=== PATIENT | male | born 1960 | race Caucasian/White ===

== ENCOUNTER 2016-10-05 23:56 | Inpatient (IN) | payer OTHER ==
--- NOTE | 2016-10-06 00:28 | ED ---
Chest Pain HPI - General Chief Complaint: Chest Pain Stated Complaint: Chest Pain Time Seen by Provider: 10/06/16 00:15 Source: patient Mode of arrival: EMS - History of Present Illness Initial Comments: This patient is a 55-year-old man transferred from [facility]. He had gone there tonight after developing chest pain, that he states was probably just before 7 PM. The patient states that he was about to have his dinner at that time. He indicates that the pain lasted number of minutes, resolved, but recurred. It has now resolved. He did not note any worsening or relieving factors. He did not have any associated symptoms. MD Complaint: chest pain Onset/Timin -: hour(s) Onset: during rest Pain Location: substernal Pain Radiation: none Severity: moderate Quality: aching Consistency: intermittent, now resolved Improves With: nothing Worsens With: nothing - Related Data Home Medications Medication Instructions Recorded Confirmed Acetaminophen [Tylenol] 500 mg PO TID 10/06/16 10/06/16 Baclofen [Lioresal] 20 mg PO QID 10/06/16 10/06/16 Bisacodyl [Dulcolax] 10 mg RECTAL PRN 10/06/16 10/06/16 Celecoxib [CeleBREX] 200 mg PO DAILY 10/06/16 10/06/16 Dantrolene [Dantrium] 25 mg PO TID 10/06/16 10/06/16 Docusate Sodium [Dok] 100 mg PO 10/06/16 Famotidine [Pepcid] 20 mg PO BID 10/06/16 10/06/16 Gabapentin 600 mg PO TID 10/06/16 10/06/16 Ketoprofen 10/06/16 Polyethylene Glycol 3350 [Miralax] 17 gm PO TID 10/06/16 10/06/16 Sennosides [Senna] 8.6 mg PO DAILY 10/06/16 10/06/16 Zolpidem [Ambien] 5 mg PO HS 10/06/16 10/06/16 oxyCODONE HCL [Oxyir] 5 mg PO Q6H PRN 10/06/16 10/06/16 traMADol HCL [Ultram] 100 mg PO Q6HR PRN 10/06/16 10/06/16 Allergies Allergy/AdvReac Type Severity Reaction Status Date / Time No Known Allergies Allergy Verified 10/06/16 00:04 Review of Systems ROS Statement: Those systems with pertinent positive or pertinent negative responses have been documented in the HPI. ROS Other: All systems not noted in ROS Statement are negative. Constitutional: Denies: fever, chills Respiratory: Denies: cough, dyspnea, hemoptysis Cardiovascular: Reports: chest pain. Denies: palpitations, orthopnea, syncope Gastrointestinal: Denies: abdominal pain, nausea, vomiting Genitourinary: Reports: other (Indwelling catheter) Musculoskeletal: Denies: back pain Skin: Denies: rash Neurological: Denies: headache, weakness EKG Findings - EKG Results: EKG: interpreted by ERMD, sinus rhythm, normal axis, normal ST/T EKG shows: bradycardia (Rate 52 bpm) - Blocks, [place], Hypertrophy, ST Abn: Chamber hypertrophy or enlargement: left ventricular hypertrophy or enlargement (LVE) Past Medical History Past Medical History: No Reported History History of Any Multi-Drug Resistant Organisms: None Reported Past Surgical History: Back Surgery Past Psychological History: No Psychological Hx Reported Smoking Status: Never smoker Past Alcohol Use History: None Reported Past Drug Use History: None Reported General Exam General appearance: alert, in no apparent distress Head exam: Present: atraumatic, normocephalic ENT exam: Present: mucous membranes moist, other (Multiple caries) Neck exam: Present: normal inspection Respiratory exam: Present: normal lung sounds bilaterally. Absent: respiratory distress, wheezes, rales, rhonchi, stridor, chest wall tenderness Cardiovascular Exam: Present: regular rate, normal rhythm, normal heart sounds. Absent: systolic murmur, diastolic murmur, rubs, gallop GI/Abdominal exam: Present: soft. Absent: distended, tenderness, guarding, rebound, mass exam: Present: other (Indwelling Yu catheter) Back exam: Present: normal inspection. Absent: CVA tenderness (R), CVA tenderness (L) Neurological exam: Present: alert Skin exam: Present: warm, dry, intact, normal color. Absent: rash Course Vital Signs 10/05/16 10/06/16 10/06/16 23:57 01:32 02:44 Temperature 98.7 F Pulse Rate 57 L 59 L 49 L Respiratory 18 18 18 Rate Blood Pressure 161/91 161/74 149/91 O2 Sat by Pulse 98 97 97 Oximetry 10/06/16 10/06/16 10/06/16 03:55 05:10 07:03 Temperature Pulse Rate 49 L 48 L 55 L Respiratory 18 18 18 Rate Blood Pressure 146/77 153/74 134/74 O2 Sat by Pulse 98 98 98 Oximetry 10/06/16 07:49 Temperature Pulse Rate 45 L Respiratory 18 Rate Blood Pressure 155/71 O2 Sat by Pulse 94 L Oximetry Chest Pain MDM - MDM Patient is a 55-year-old man seen at outside hospital for suspected acute coronary syndrome and transferred here to have telemetry monitoring, serial cardiac enzymes, cardiology consultation. On arrival and at my evaluation, the patient has no symptoms any longer. He does have elevated troponin, and this is discussed with the admitting physician as well as the fountain jerk. Heparin started. Patient to be kept nothing by mouth and also to have echocardiogram this a.m. Critical Care Time Critical Care Time: Yes (35 minutes) Disposition Clinical Impression: NSTEMI (non-ST elevated myocardial infarction) Disposition: ADMITTED IP TO THIS HOSP Condition: Serious
[2016-10-06] MEDS ORDERED: ASPIRIN 81 MG CHEW PO STA (01:10)
[2016-10-06] MEDS ORDERED: NITROGLYCERIN SL TABS 0.4 MG TAB SUBLINGUAL PRN ×2 (01:21→14:37)
[2016-10-06] MEDS: HEPARIN SODIUM,PORCINE/D5W PMX 25,000 UNIT in DEXTROSE/WATER 1 500ML.BAG IV SCH ×2 (01:24→23:27)
[2016-10-06] MEDS: HEPARIN SODIUM,PORCINE 5,000 UNIT/ML 1 ML VIAL IV ONE ×2 (01:27→07:41)
[2016-10-06] MEDS: SODIUM CHLORIDE 0.9% 1,000 ML IV SCH ×3 (01:29→12:53)
[2016-10-06] MEDS ORDERED: traMADol 50 MG TAB PO PRN (06:32)
[2016-10-06] MEDS ORDERED: BISACODYL 10 MG SUPP RECTAL PRN (06:32)
[2016-10-06 07:29] LABS: Basophils # (A) 0.1 k/uL (0-0.2); Basophils % (A) 1 %; CH 29.6; CHCM 33.8; Eosinophils # (A) 0.3 k/uL (0-0.7); Eosinophils % (A) 4 %; HCT 39.7 % (39.0-53.0); HGB 13.6 gm/dL (13.0-17.5); Luc # (Auto) 0.17; Luc % (Auto) 2; Lymphocytes # (A) 2.2 k/uL (1.0-4.8); Lymphocytes % (A) 24 %; MCH 30.1 pg (25.0-35.0); MCHC 34.2 g/dL (31.0-37.0); Mean Platelet Volume 6.7; Monocytes # (A) 0.5 k/uL (0-1.0); Monocytes % (A) 5 %; Neutrophils # (A) 5.9 k/uL (1.3-7.7); Neutrophils % (A) 65 %; RBC 4.52 m/uL (4.30-5.90); RDW 15.2 % (11.5-15.5); WBC 9.1 k/uL (3.8-10.6); WBC (Perox) 9.39
[2016-10-06 07:33] LABS: Anion Gap 8 mmol/L; Blood Urea Nitrogen 16 mg/dL (9-20); Calcium 9.4 mg/dL (8.4-10.2); Carbon Dioxide 24 mmol/L (22-30); Chloride 102 mmol/L (98-107); Glucose 76 mg/dL (74-99); Non-African American GFR(MDRD) >60 (>60 ml/min/1.73 sqM); Potassium 4.3 mmol/L (3.5-5.1); Sodium 134 mmol/L (137-145)
[2016-10-06 07:46] LABS: Troponin I 13.1 ng/mL (0.000-0.034)
[2016-10-06] MEDS: SENNOSIDES 8.6 MG TAB PO SCH (08:48)
[2016-10-06] MEDS: GABAPENTIN 300 MG CAP PO SCH ×3 (08:48→21:28)
[2016-10-06] MEDS: DOCUSATE 100 MG CAP PO SCH ×2 (08:49→21:28)
[2016-10-06] MEDS: FAMOTIDINE 20 MG TAB PO SCH ×2 (08:49→21:29)
[2016-10-06] MEDS: DANTROLENE 25 MG CAP PO SCH ×3 (08:49→21:28)
[2016-10-06] MEDS: BACLOFEN 10 MG TAB PO SCH ×4 (08:49→21:29)
[2016-10-06] MEDS: MELOXICAM 7.5 MG TAB PO SCH (08:49)
[2016-10-06] MEDS: ACETAMINOPHEN TAB 500 MG TAB PO SCH ×3 (08:51→23:08)
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
[2016-10-06] MEDS ORDERED: VERAPAMIL 2.5 MG/ML 2 ML AMP ONE ×2 (12:33→13:52)
[2016-10-06] MEDS ORDERED: HEPARIN SODIUM 1,000 UN/ML (10ML VL) ONE (12:52)
[2016-10-06] MEDS ORDERED: MIDAZOLAM 2 MG/2 ML VIAL ONE (12:52)
[2016-10-06] MEDS ORDERED: MIDAZOLAM 2 MG/2 ML VIAL IV ONE (12:58)
[2016-10-06] MEDS ORDERED: LIDOCAINE 2% INJ 20 MG/ML SQ ONE (13:00)
[2016-10-06] MEDS: VERAPAMIL SYRINGE (5 MG/10 ML) INTRAARTER ONE ×2 (13:02→13:51)
[2016-10-06] MEDS: NITROGLYCERIN 1000MCG/10ML SYRINGE INTRACORON ONE ×2 (14:22→14:26)
[2016-10-06] MEDS ORDERED: VERAPAMIL SYRINGE (5 MG/10 ML) INTRAARTER ONE (14:28)
[2016-10-06] MEDS ORDERED: CLOPIDOGREL 75 MG TAB PO ONE (14:29)
[2016-10-06] MEDS ORDERED: CLOPIDOGREL 75 MG TAB ONE (14:29)
[2016-10-06] MEDS ORDERED: ATROPINE SULFATE 0.1 MG/ML 10ML SYRINGE IV PRN (14:37)
[2016-10-06] MEDS ORDERED: ZOLPIDEM 5 MG TAB PO PRN (14:37)
[2016-10-06] MEDS ORDERED: RX INFO: IV CONTRAST WAS GIVEN 1 EACH MISC MISCELLANE PRN (14:37)
[2016-10-06] MEDS ORDERED: MAG HYDROX/AL HYDROX/SIMETH 30 ML CUP PO PRN (14:37)
[2016-10-06] MEDS ORDERED: SODIUM CHLORIDE 0.9% 1,000 ML IV SCH (14:45)
[2016-10-06] MEDS ORDERED: IOHEXOL 350 MG/ML 125ML BOTTLE INJ ONE (14:57)
[2016-10-06] MEDS: POLYETHYLENE GLYCOL 3350 17 GM POWD.PACK PO SCH ×3 (15:31→21:28)
[2016-10-06 16:53] LABS: Creatine Kinase MB 98.2 ng/mL (0.0-2.4)
--- NOTE | 2016-10-06 18:06 | ECHOF ---
Referral Reason:NSTEMI MEASUREMENTS -------- HEIGHT: 175.3 cm WEIGHT: 59.0 kg BP: 130/50 RVIDd: 2.5 cm (< 3.3) IVSd: 1.0 cm (0.6 - 1.1) LVIDd: 4.2 cm (3.9 - 5.3) LVPWd: 1.1 cm (0.6 - 1.1) IVSs: 1.4 cm LVIDs: 3.6 cm LVPWs: 0.9 cm LA Diam: 3.2 cm (2.7 - 3.8) LAESV Index (A-L): 22.15 ml/m Ao Diam: 3.7 cm (2.0 - 3.7) AV Cusp: 1.9 cm (1.5 - 2.6) LA Diam: 3.7 cm (2.7 - 3.8) MV EXCURSION: 21.518 mm (> 18.000) MV EF SLOPE: 127 mm/s (70 - 150) EPSS: 0.5 cm MV E Asher: 0.78 m/s MV DecT: 284 ms MV A Asher: 0.64 m/s MV E/A Ratio: 1.22 RAP: 5.00 mmHg RVSP: 26.68 mmHg FINDINGS -------- Sinus rhythm. This was a technically adequate study. Left ventricular wall thickness is normal. Overall left ventricular systolic function is low-normal with, an EF between 50 - 55 %. Posterior hypokinesis The right ventricle is normal in size. Normal LA size by volume 22+/-6 ml/m2. The right atrial size is normal. There is mild aortic valve sclerosis. There is no evidence of aortic regurgitation. Mild mitral regurgitation is present. Mild tricuspid regurgitation present. There is no evidence of pulmonary hypertension. The right ventricular systolic pressure, as measured by Doppler, is 26.68mmHg. Trace/mild (physiologic) pulmonic regurgitation. The aortic root size is normal. There is no pericardial effusion. CONCLUSIONS -------- 1. Left ventricular wall thickness is normal. 2. Overall left ventricular systolic function is low-normal with, an EF between 50 - 55 %. 3. Posterior hypokinesis 4. There is mild aortic valve sclerosis. 5. Mild mitral regurgitation is present. 6. Mild tricuspid regurgitation present. 7. There is no evidence of pulmonary hypertension. 8. The right ventricular systolic pressure, as measured by Doppler, is 26.68mmHg. BUSINESS SYSTEM MANAGER: Shelby Mckeon RDCS
[2016-10-06] MEDS: ATORVASTATIN 80 MG TAB PO SCH (21:28)
[2016-10-06] MEDS: METOPROLOL TARTRATE 25 MG TAB PO SCH (21:29)
[2016-10-06] MEDS: ZOLPIDEM 5 MG TAB PO SCH (23:08)
[2016-10-07 06:41] LABS: Basophils # (A) 0.1 k/uL (0-0.2); Basophils % (A) 1 %; CH 29.8; CHCM 34.1; Eosinophils # (A) 0.3 k/uL (0-0.7); Eosinophils % (A) 2 %; HCT 36.4 % (39.0-53.0); HDW 2.74; HGB 12.3 gm/dL (13.0-17.5); Luc # (Auto) 0.17; Luc % (Auto) 1; Lymphocytes # (A) 1.8 k/uL (1.0-4.8); Lymphocytes % (A) 14 %; MCH 29.7 pg (25.0-35.0); MCHC 33.9 g/dL (31.0-37.0); MCV 87.4 fL (80.0-100.0); Monocytes # (A) 0.7 k/uL (0-1.0); Monocytes % (A) 6 %; Neutrophils # (A) 9.5 k/uL (1.3-7.7); Neutrophils % (A) 76 %; RBC 4.16 m/uL (4.30-5.90); RDW 15.4 % (11.5-15.5); WBC 12.5 k/uL (3.8-10.6); WBC (Perox) 12.85
[2016-10-07 07:00] LABS: Carbon Dioxide 22 mmol/L (22-30); Chloride 105 mmol/L (98-107); Glucose 74 mg/dL (74-99); Potassium 4.2 mmol/L (3.5-5.1); Sodium 136 mmol/L (137-145)
[2016-10-07 07:01] LABS: Anion Gap 9 mmol/L; Blood Urea Nitrogen 12 mg/dL (9-20); Calcium 9.3 mg/dL (8.4-10.2); Cholesterol 131 mg/dL (<200); HDL Cholesterol 33 mg/dL (40-60); Non-African American GFR(MDRD) >60 (>60 ml/min/1.73 sqM)
[2016-10-07] MEDS: ACETAMINOPHEN TAB 500 MG TAB PO SCH ×3 (09:23→22:24)
[2016-10-07] MEDS: ASPIRIN 325 MG TAB PO SCH (09:23)
[2016-10-07] MEDS: BACLOFEN 10 MG TAB PO SCH ×4 (09:23→22:23)
[2016-10-07] MEDS: POLYETHYLENE GLYCOL 3350 17 GM POWD.PACK PO SCH ×3 (09:23→22:24)
[2016-10-07] MEDS: CLOPIDOGREL 75 MG TAB PO SCH (09:24)
[2016-10-07] MEDS: FAMOTIDINE 20 MG TAB PO SCH ×2 (09:24→22:24)
[2016-10-07] MEDS: DOCUSATE 100 MG CAP PO SCH ×2 (09:24→22:23)
[2016-10-07] MEDS: DANTROLENE 25 MG CAP PO SCH ×3 (09:24→22:23)
[2016-10-07] MEDS: GABAPENTIN 300 MG CAP PO SCH ×3 (09:25→22:23)
[2016-10-07] MEDS: METOPROLOL TARTRATE 25 MG TAB PO SCH ×2 (09:25→22:23)
[2016-10-07] MEDS: MELOXICAM 7.5 MG TAB PO SCH (09:25)
[2016-10-07] MEDS: LISINOPRIL 10 MG TAB PO SCH (09:25)
[2016-10-07] MEDS: SENNOSIDES 8.6 MG TAB PO SCH (09:25)
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
[2016-10-07] MEDS: ZOLPIDEM 5 MG TAB PO SCH (22:24)
[2016-10-07] MEDS: ATORVASTATIN 80 MG TAB PO SCH (22:24)
[2016-10-07] MEDS: HEPARIN SODIUM,PORCINE/D5W PMX 25,000 UNIT in DEXTROSE/WATER 1 500ML.BAG IV SCH (23:11)
[2016-10-08 00:24] VITALS: RESP 18
--- NOTE | 2016-10-08 07:04 | HP ---
DATE OF ADMISSION: 10/06/16 CHIEF COMPLAINT: Chest pain. HISTORY OF PRESENT ILLNESS: This is a 55-year-old gentleman with past medical history of back injury, history of weakness, history of brain aneurysm, being followed by primary care physician in the [place] area was complaining of chest pain, last night and the patient came to [facility]. EKG showed ST-T changes in the inferior leads and the patient underwent cardiac catheterization and RCA stenting. A 2D echo with Doppler also was done which showed ejection fraction 50 to 55% and multiple mild valvular regurgitations. There is no history of fever, rigor or chills. No history of headache, loss of consciousness or seizures. Past medical history of back surgery, weakness, history of hernia surgery, brain aneurysm. Medications are: 1. Ultram 100 mg t.i.d. prn 2. OxyIR 5 mg q6h prn 2.5 mg prn 3. Ambien 10 mg q.h.s. 5. Miralax 17 gm daily. 8. Gabapentin 600 mg t.i.d. 9. Pepcid 20 mg b.i.d. 11. Dantrium 75 mg t.i.d. 12. Celebrex 200 mg daily. 13. Dulcolax 10 mg daily prn. 14. Lioresal 20 mg po daily. 15. Tylenol 1000 mg t.i.d. prn. ALLERGIES: None. FAMILY HISTORY: History of diabetes and hyperlipidemia. SOCIAL HISTORY: History of smoking and no history of alcohol intake. REVIEW OF SYSTEMS: HEENT: No diminished vision. No diminished hearing. Cardiovascular system: No angina or palpitations. Respiratory: As mentioned earlier. GI: As mentioned earlier. : No dysuria. Nervous system: No numbness, weakness. Allergy/Immunology: No asthma or hayfever. Musculoskeletal : As mentioned earlier. Hematology/oncology: No history of anemia. Endocrine: No history of diabetes or hypothyroidism. Constitutional: As mentioned earlier. Dermatology: Negative. Rheumatology: Negative. Psychiatry: As mentioned earlier. PHYSICAL EXAMINATION: Alert and oriented times three. Pulse 56. Blood pressure 135/81. Respiratory rate 18, temperature normal. Pulse ox 94% on room air. HEENT: Conjunctivae normal. NECK: No JVD. Cardiovascular: S1, S2 muffled. Respiratory: Breath sounds diminished at the bases. A few scattered rhonchi and no crackles. Abdomen is soft. Nontender. No mass palpable. Legs: No edema. No swelling. Nervous system: Diffusely weak. LABS: Troponin 22. ASSESSMENT: 1. Acute non-ST segment elevation myocardial infarction status post cardiac catheterization and stenting of the right coronary artery. 2. Troponin 22. 3. Hyponatremia. 4. History of nicotine dependence. 5. History of back surgery and weakness. 6. History of brain aneurysm. 7. Chronic pain syndrome. RECOMMENDATIONS AND DISCUSSION: Continue the current medications, continue symptomatic treatment. Otherwise at this time I would recommend repeat labs. Resume the home medications. Otherwise, continue to monitor. Continue antiplatelet agents. Guarded prognosis because of multiple medical issues. Further recommendations to follow. MTDD
--- NOTE | 2016-10-08 07:30 | CC ---
DATE OF SERVICE: 10/06/16 PERFORMING PHYSICIAN: Michael Pollard M.D., screwhead polisher. PROCEDURE PERFORMED: 1. Selective right and left coronary angiogram. 2. Left heart catheterization. 3. Left ventriculography. 4. Successful stenting of the mid RCA using 2.5 x 16 mm Promus Premier ALONDRA with good angiographic results. INDICATIONS: This is a pleasant 55 year old gentleman who is quadriplegic who also is a smoker presented to the hospital with chest discomfort and was ruled out for acute Non-STEMI. The decision was made toward percutaneous coronary intervention. APPROACH: Right radial artery. COMPLICATIONS: None. LEVEL OF SEDATION: Moderate with a sedation length of 97 minutes. PROCEDURE DESCRIPTION: After obtaining informed consent, the patient was brought to the cardiac geotechnical laboratory technician. The right radial artery was cannulated using micropuncture technique. The micropuncture wire passed easily. Then, I placed a 6 Mongolian sheath in the right radial artery. Subsequently I gave the patient a total of 6000 units of heparin IV and 2 mg of Verapamil IA. I did selective right and left coronary angiogram. Selective right coronary angiogram was quite challenging because the ostial of the right coronary artery almost coming from the left coronary cusp. I was able to get the right using Joao Mandel posterior. Selective left coronary angiogram was performed using JL 3.5 catheters. After that I did left heart catheterization and LV-gram using 6 Mongolian pigtail catheter. After that, I did intervene on the RCA. Please see a separate paragraph for that. SELECTIVE CORONARY ANGIOGRAM: 1. The right coronary artery is a large caliber vessel and it is a dominant vessel. The proximal right coronary artery had a long tubular lesion in the range of 50 to 60%. The mid RCA has critical lesion in the range of 80 to 90% and the RCA distally appeared to be angiographically normal. 2. The left main is angiographically normal. It bifurcates into left circumflex and left anterior descending artery. 3. The left circumflex is a large caliber vessel and it is a nondominant vessel. The proximal left circumflex appeared to have mild disease only and gives rise into the first and second obtuse marginal branches. The first OM branch is small to medium caliber vessel with severe disease in the proximal portion. OM2 appeared to be a small to medium caliber vessel as well with mild disease in the proximal portion. The mid left circumflex appeared to be angiographically normal. The left circumflex distally is angiographically normal. 4. The left anterior descending coronary artery: The proximal left anterior descending artery appeared to have mild disease only and gives rise into a large first diagonal branch which appeared to have a tight lesion in the proximal portion. The mid LAD appeared to have a lesion in the range of 70%. After that, the LAD has another lesion seems to be in the range of 50% at least. The LAD distally appeared to have mild disease but it is very tortuous artery. DISTRIBUTION LINEMAN of the RCA: Anticoagulation was initiated using Heparin and was given a weight based heparin. Subsequently, I attempted multiple guiding catheters to engage the right coronary artery but the best guide was Joao mario. I did wire the RCA using a Whisper wire as well as using run through wire. I did balloon angioplasty using 2-0 x 12 mm balloon and then I stented the RCA distally using 2.5 x 16 mm Promus Premier drug eluting stent. The stent was position under fluoroscopy guidance and deployed under 11 atmospheres for 30 seconds. The following angiogram showed good angiographic results. CONCLUSION: 1. Acute non-ST elevation myocardial infarction. 2. 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 3. Severe disease involving the mid RCA. 4. Normal left main coronary artery. 5. Mild disease involving the left circumflex. 6. Severe disease involving the mid left anterior descending artery. 7. Severe disease involving the first diag of the LAD. POSTPROCEDURE MANAGEMENT: 1. Maximize medical treatment at this point in time. 2. Dual antiplatelet therapy and statin. 3. Follow-up with the patient. JAYNA
[2016-10-08] MEDS: CLOPIDOGREL 75 MG TAB PO SCH (09:26)
[2016-10-08] MEDS: METOPROLOL TARTRATE 25 MG TAB PO SCH (09:26)
[2016-10-08] MEDS: ACETAMINOPHEN TAB 500 MG TAB PO SCH (09:26)
[2016-10-08] MEDS: ASPIRIN 325 MG TAB PO SCH (09:26)
[2016-10-08] MEDS: LISINOPRIL 10 MG TAB PO SCH (09:27)
[2016-10-08] MEDS: DANTROLENE 25 MG CAP PO SCH (09:27)
[2016-10-08] MEDS: FAMOTIDINE 20 MG TAB PO SCH (09:27)
[2016-10-08] MEDS: DOCUSATE 100 MG CAP PO SCH (09:27)
[2016-10-08] MEDS: GABAPENTIN 300 MG CAP PO SCH (09:28)
[2016-10-08] MEDS: BACLOFEN 10 MG TAB PO SCH (09:28)
[2016-10-08] MEDS: MELOXICAM 7.5 MG TAB PO SCH (09:28)
[2016-10-08] MEDS: SENNOSIDES 8.6 MG TAB PO SCH (09:29)
[2016-10-08] MEDS: POLYETHYLENE GLYCOL 3350 17 GM POWD.PACK PO SCH (09:32)
[2016-10-08 13:59] VITALS: BMI 20.2
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
--- NOTE | 2016-10-08 15:18 | PN ---
DATE OF SERVICE: 10/07/2016 This is a 55-year-old gentleman who was admitted with myocardial infarction, underwent cardiac catheterization and RCA stenting, no chest pain, no palpitation, no fever. On exam, alert and oriented x3. Pulse is 53, blood pressure 108/58, respirations 14, temperature 97.6, pulse 98% on room air. HEENT: Conjunctivae normal. NECK: No jugular venous distension. CARDIOVASCULAR SYSTEM: S1, S2, muffled. RESPIRATORY: Breath sounds diminished at the bases, a few scattered rhonchi. ABDOMEN: Soft, nontender. LEGS: No edema, no swelling. NERVOUS SYSTEM: No focal deficits. LABS: WBC is 12.8, hemoglobin is 12.3. Sodium 136, HDL is 33. ASSESSMENT: 1. Acute bop-KJ-ccsynct elevation myocardial infarction, status post cardiac catheterization of the right coronary artery. 3. Troponin 22. 4. History of back surgery and degenerative joint disease. RECOMMENDATION: Recommend to continue with the current medication and monitoring, symptomatic treatment. Continue with antiplatelets and beta blockers. Guarded prognosis, further recommendations to follow. ZOHREHD
[2016-10-08 15:48] VITALS: BP 122/71; TEMP 97.8
[2016-10-08 15:52] VITALS: PULSE 72
--- NOTE | 2016-10-08 19:14 | P.DS ---
Providers Date of admission: 10/06/16 01:22 Attending physician: Roc Huynh Consults: 10/06/16 01:22 Consult Physician Stat Consulting Provider: Vaughn Coulter Consult Reason/Comments: NSTEMI Do you want consulting provider notified?: Already Contacted 10/06/16 14:38 Consult Physician Routine Consulting Provider: [facility] Consult Reason/Comments: Post Interventional patient Do you want consulting provider notified?: Already Contacted Primary care physician: Physician Nonstaff Hospital Course: This 55-year-old gentleman was admitted acute non-ST segment elevation myocardial infarction. Patient underwent a cardiac And RCA stenting. No chest pain or palpitation. Patient improved significantly. On exam vitals stable. S1-S2 normal. Breath sounds equal. Abdomen soft nontender. Final diagnosis 1. Acute non-ST segment elevation myocardial infarction status post cardiac And RCA stenting. 2. Troponin 22 3. History of back surgery 4. History of DJD Patient Condition at Discharge: Serious Plan - Discharge Summary New Discharge Prescriptions: New Aspirin 325 mg PO DAILY #30 tab Atorvastatin [Lipitor] 80 mg PO HS #30 tab Clopidogrel [Plavix] 75 mg PO DAILY #30 tab Lisinopril [Zestril] 10 mg PO DAILY #30 tab Metoprolol Tartrate [Lopressor] 25 mg PO BID #60 tab Nitroglycerin Sl Tabs [Nitrostat] 0.4 mg SUBLINGUAL Q5M PRN #25 tab PRN Reason: Chest Pain Continue Baclofen [Lioresal] 20 mg PO QID Acetaminophen [Tylenol] 1,000 mg PO TID PRN PRN Reason: Pain traMADol HCL [Ultram] 100 mg PO Q6HR PRN PRN Reason: Pain Sennosides [Senna] 17.2 mg PO DAILY Polyethylene Glycol 3350 [Miralax] 17 gm PO TID oxyCODONE HCL [OxyIR] 2.5 mg PO Q6H PRN PRN Reason: Moderate Pain Famotidine [Pepcid] 20 mg PO BID Gabapentin 600 mg PO TID Dantrolene [Dantrium] 25 mg PO TID Docusate Sodium [Dok] 100 mg PO TID Bisacodyl [Dulcolax] 10 mg RECTAL DAILY PRN PRN Reason: Constipation Ketoprofen 10% Gel 1 applic TOPICAL TID PRN PRN Reason: Pain oxyCODONE HCL [OxyIR] 5 mg PO Q6H PRN PRN Reason: Severe Pain Phenylephrine 0.25% Supp 1 supp RECTAL DAILY PRN PRN Reason: Hemorrhoids traMADol HCL [Ultram] 100 mg PO TID MDD 400MG Zolpidem [Ambien] 10 mg PO HS PRN PRN Reason: Insomnia Discontinued Celecoxib [CeleBREX] 200 mg PO DAILY Discharge Medication List Acetaminophen [Tylenol] 1,000 mg PO TID PRN 10/06/16 [History] Baclofen [Lioresal] 20 mg PO QID 10/06/16 [History] Bisacodyl [Dulcolax] 10 mg RECTAL DAILY PRN 10/06/16 [History] Dantrolene [Dantrium] 25 mg PO TID 10/06/16 [History] Docusate Sodium [Dok] 100 mg PO TID 10/06/16 [History] Famotidine [Pepcid] 20 mg PO BID 10/06/16 [History] Gabapentin 600 mg PO TID 10/06/16 [History] Ketoprofen 10% Gel 1 applic TOPICAL TID PRN 10/06/16 [History] Phenylephrine 0.25% Supp 1 supp RECTAL DAILY PRN 10/06/16 [History] Polyethylene Glycol 3350 [Miralax] 17 gm PO TID 10/06/16 [History] Sennosides [Senna] 17.2 mg PO DAILY 10/06/16 [History] Zolpidem [Ambien] 10 mg PO HS PRN 10/06/16 [History] oxyCODONE HCL [OxyIR] 2.5 mg PO Q6H PRN 10/06/16 [History] oxyCODONE HCL [OxyIR] 5 mg PO Q6H PRN 10/06/16 [History] traMADol HCL [Ultram] 100 mg PO Q6HR PRN 10/06/16 [History] traMADol HCL [Ultram] 100 mg PO TID MDD 400MG 10/06/16 [History] Aspirin 325 mg PO DAILY #30 tab 10/08/16 [Rx] Atorvastatin [Lipitor] 80 mg PO HS #30 tab 10/08/16 [Rx] Clopidogrel [Plavix] 75 mg PO DAILY #30 tab 10/08/16 [Rx] Lisinopril [Zestril] 10 mg PO DAILY #30 tab 10/08/16 [Rx] Metoprolol Tartrate [Lopressor] 25 mg PO BID #60 tab 10/08/16 [Rx] Nitroglycerin Sl Tabs [Nitrostat] 0.4 mg SUBLINGUAL Q5M PRN #25 tab 10/08/16 [Rx ] Follow up Appointment(s)/Referral(s): Michael Pollard MD [STAFF PHYSICIAN] - 10/19/16 3:30 pm None,Stated [REFERRING] - 1-2 days Patient Instructions/Handouts: *Surgery [facility] - After Heart Catheterization - [employer] Instructions Activity/Diet/Wound Care/Special Instructions: diet cardiac act linmited till f/u Discharge Disposition: HOME SELF-CARE
== END 2016-10-08 15:35 | disposition home or self-care (01) | DRG 246 ==
LOC: EC 23:56 → 6SEL 10-06 01:22
PROVIDERS: ADMIT Hospitalist; ATTEND Hospitalist
PROC: 4A023N7 Measurement of Cardiac Sampling and Pressure, Left Heart, Percutaneous Approach (ICD-10-PCS; principal; 2016-10-06 12:25)
PROC: B2111ZZ Fluoroscopy of Multiple Coronary Arteries using Low Osmolar Contrast (ICD-10-PCS; principal; 2016-10-06 12:25)
PROC: B2151ZZ Fluoroscopy of Left Heart using Low Osmolar Contrast (ICD-10-PCS; principal; 2016-10-06 12:25)
PROC: 027034Z Dilation of Coronary Artery, One Artery with Drug-eluting Intraluminal Device, Percutaneous Approach (ICD-10-PCS; principal; 2016-10-06 12:25)
DX: I21.4 Non-ST elevation (NSTEMI) myocardial infarction (principal); G82.50 Quadriplegia, unspecified; E87.1 Hypo-osmolality and hyponatremia; E78.5 Hyperlipidemia, unspecified; F17.200 Nicotine dependence, unspecified, uncomplicated; G89.4 Chronic pain syndrome; Z79.899 Other long term (current) drug therapy; Z83.3 Family history of diabetes mellitus
CPT/HCPCS: 36415; 80048; 80061; 82550; 82553; 84484; 85025; 85730; 93005; 93306